=== PATIENT | male | born 1980 | race Caucasian/White ===

== ENCOUNTER 2019-07-09 20:20 | Emergency (ER) | payer BC, OTHER ==
[~2019-07-09] VITALS: Ht 165.1 cm; Wt 81.2 kg
[~2019-07-09 20:20] MED LIST: OMEP20CA4 PO
--- NOTE | 2019-07-09 20:30 | NUR ---
BIB W/ FOR C/O ABD PAIN, +N/V SINE 0900, pt aaox4, -sob, pt on monitor, vss, nad noted, pending md mariscal
[2019-07-09] MEDS ORDERED: ONDANSETRON HCL/PF 4 MG/2 ML VIAL ONE (20:50)
[2019-07-09] MEDS ORDERED: HYDROMORPHONE 1 MG/1 ML DISP.SYRIN ONE ×2 (20:51→21:50)
[2019-07-09 20:56] LABS: BASOPHILS % (AUTO) 0.4 % (0.0-2.0); HEMATOCRIT 46 % (39-51); HEMOGLOBIN 15.4 g/dL (13.5-17.5); LYMPHOCYTES # (AUTO) 0.8 /CMM (0.8-4.8); LYMPHOCYTES % (AUTO) 9.8 % (20.0-44.0); MEAN CORPUSCULAR HGB CONC 34 g/dl (31.0-36.0); MEAN CORPUSCULAR VOLUME 86 fL (80-96); MONOCYTES # (AUTO) 0.8 /CMM (0.1-1.30); MONOCYTES % (AUTO) 9.7 % (2.0-12.0); NEUTROPHILS # (AUTO) 6.2 /CMM (1.8-8.9); NEUTROPHILS % (AUTO) 79.1 % (43.0-81.0); PLATELET COUNT (AUTO) 238 /CMM (150-450); WHITE BLOOD COUNT (AUTO) 7.8 K/uL (4.3-11.0)
[2019-07-09] MEDS ORDERED: ONDANSETRON HCL/PF 4 MG/2 ML VIAL IVP ONE (21:00)
[2019-07-09] MEDS ORDERED: IV NS 0.9% 1,000 ML BAG IV ONE (21:00)
[2019-07-09] MEDS ORDERED: HYDROMORPHONE INJ 2 MG/ML DISP.SYRIN IV ONE ×2 (21:00→22:00)
[2019-07-09 21:18] LABS: BILIRUBIN,DIRECT 0.1 mg/dL (0.0-0.2); BILIRUBIN,TOTAL 0.4 mg/dL (0.2-1.0); CALCIUM, SERUM 9.1 mg/dL (8.5-10.1); POTASSIUM 3.7 mmol/L (3.5-5.1); TOTAL PROTEIN, SERUM 7.1 g/dL (6.4-8.2)
[2019-07-09 21:30] LABS: APPEARANCE,URINE Clear (CLEAR); BILIRUBIN,URINE SMALL (NEGATIVE); BLOOD, URINE Negative Ery/uL (NEGATIVE); COLOR,URINE Yellow (YELLOW); KETONES,URINE Trace (NEGATIVE); LEUKOCYTE ESTERASE ,URINE Negative (NEGATIVE); NITRITE, URINE Negative (NEGATIVE); PROTEIN,URINE Trace mg/dl (NEGATIVE); UGLUCOSE Negative (NEGATIVE)
[2019-07-09 21:42] LABS: BACTERIA,URINE None seen /HPF (None Seen); RBC,URINE NONE SEEN /HPF (0-2); WBC,URINE NONE SEEN /HPF (0-3)
[2019-07-09 21:43] LABS: HYALINE CASTS, URINE Few /LPF (None Seen); MUCUS,URINE Few /LPF (None Seen)
[2019-07-09] MEDS ORDERED: METOCLOPRAMIDE HCL 10 MG/2 ML VIAL ONE (21:50)
[2019-07-09] MEDS ORDERED: METOCLOPRAMIDE HCL 10 MG/2 ML VIAL IV ONE (22:00)
--- NOTE | 2019-07-09 22:38 | NUR ---
Patient discharged to home in stable condition. Written and verbal after care instructions given. Patient verbalizes understanding of instruction.IV removed. Catheter intact and site benign. Pressure and 4x4 applied to site. No bleeding noted.Pt ambulatory with a steady gait
[2019-07-09 22:39] VITALS: BP 140/86
== END 2019-07-09 22:39 | disposition home or self-care (01) ==
LOC: ER 20:23
DX: R10.84 Generalized abdominal pain (principal); R11.2 Nausea with vomiting, unspecified; I10 Essential (primary) hypertension; M54.30 Sciatica, unspecified side; K21.9 Gastro-esophageal reflux disease without esophagitis; G89.29 Other chronic pain; M54.9 Dorsalgia, unspecified; Z98.890 Other specified postprocedural states; Z79.899 Other long term (current) drug therapy
CPT/HCPCS: 36415; 80048; 80076; 81001; 83690; 85025; 87804 ×2; 96361; 96374; 96375; 99283; J1170 ×2; J2405; J2765; J7030; 81000-TC

== ENCOUNTER 2020-10-13 10:00 | Emergency (ER) | payer BC ==
[~2020-10-13] VITALS: Ht 165.1 cm; Wt 74.8 kg
[2020-10-13 10:29] LABS: BASOPHILS # (AUTO) 0.1 /CMM (0.0-0.2); BASOPHILS % (AUTO) 0.8 % (0.0-2.0); HEMATOCRIT 45 % (39-51); HEMOGLOBIN 15.1 g/dL (13.5-17.5); LYMPHOCYTES # (AUTO) 0.9 /CMM (0.8-4.8); LYMPHOCYTES % (AUTO) 13.3 % (20.0-44.0); MEAN CORPUSCULAR HGB CONC 34 g/dl (31.0-36.0); MEAN CORPUSCULAR VOLUME 87 fL (80-96); MONOCYTES # (AUTO) 0.5 /CMM (0.1-1.30); MONOCYTES % (AUTO) 7.3 % (2.0-12.0); NEUTROPHILS # (AUTO) 5.2 /CMM (1.8-8.9); NEUTROPHILS % (AUTO) 76.6 % (43.0-81.0); PLATELET COUNT (AUTO) 252 /CMM (150-450); RED BLOOD CELL COUNT(AUTO) 5.16 MIL/uL (4.5-6.0); WHITE BLOOD COUNT (AUTO) 6.8 K/uL (4.3-11.0)
[2020-10-13] MEDS ORDERED: ONDANSETRON HCL/PF 4 MG/2 ML VIAL IVP ONE (10:30)
[2020-10-13] MEDS ORDERED: IV NS 0.9% 1,000 ML BAG IV ONE (10:30)
[2020-10-13] MEDS ORDERED: HYDROMORPHONE INJ 2 MG/ML DISP.SYRIN IV ONE (10:30)
[2020-10-13 10:42] LABS: BILIRUBIN,DIRECT 0.1 mg/dL (0.0-0.2); BILIRUBIN,TOTAL 0.3 mg/dL (0.2-1.0); CALCIUM, SERUM 9.2 mg/dL (8.5-10.1); CREATININE 1.1 mg/dL (0.6-1.3); POTASSIUM 3.7 mmol/L (3.5-5.1); TOTAL PROTEIN, SERUM 7.4 g/dL (6.4-8.2)
[2020-10-13] MEDS ORDERED: ONDANSETRON HCL/PF 4 MG/2 ML VIAL ONE (10:44)
[2020-10-13] MEDS ORDERED: HYDROMORPHONE 1 MG/1 ML DISP.SYRIN ONE (10:44)
--- NOTE | 2020-10-13 10:52 | NUR ---
Patient came in to the er c/o abd pain, cramping x 4 days and diarrhea, +nausea, 10/10 pain scale. On room air, breathing evenly and unlabored. Connected tot he monitor and pulse ox. kept comfortable, will continue to monitor accordingly.
[2020-10-13 11:18] LABS: BILIRUBIN,URINE Negative (NEGATIVE); COLOR,URINE YELLOW (YELLOW); LEUKOCYTE ESTERASE ,URINE Negative (NEGATIVE); NITRITE, URINE Negative (NEGATIVE); PH,URINE 7.5 (5.0-8.0); PROTEIN,URINE Negative (NEGATIVE); UGLUCOSE Negative (NEGATIVE); UROBILINOGEN,URINE 0.2 EU/dL (0.2)
[2020-10-13 12:21] VITALS: BP 140/81
--- NOTE | 2020-10-13 12:21 | NUR ---
Patient discharged to home in stable condition. Written and verbal after care instructions given. Patient verbalizes understanding of instruction.IV removed. Catheter intact and site benign. Pressure and 4x4 applied to site. No bleeding noted.
== END 2020-10-13 12:21 | disposition home or self-care (01) ==
LOC: ER 10:05
DX: R10.84 Generalized abdominal pain (principal); R19.7 Diarrhea, unspecified; R11.0 Nausea; K21.9 Gastro-esophageal reflux disease without esophagitis; Z98.890 Other specified postprocedural states; Z79.899 Other long term (current) drug therapy
CPT/HCPCS: 36415; 74176; 80048; 80076; 81003; 83690; 85025; 96361; 96374; 96375; 99284; J1170; J2405; J7030

== ENCOUNTER 2023-10-21 12:02 | Emergency (ER) | payer BC ==
[~2023-10-21] VITALS: Ht 165.1 cm; Wt 77.6 kg
[2023-10-21] MEDS ORDERED: ONDANSETRON HCL/PF 4 MG/2 ML VIAL ONE (12:15)
[2023-10-21] MEDS ORDERED: MORPHINE SULFATE INJ 4 MG/ML DISP.SYRIN ONE (12:15)
[2023-10-21] MEDS ORDERED: ASPIRIN EC 325 MG TABLET.DR PO ONE (12:15)
[2023-10-21] MEDS ORDERED: NITROGLYCERIN 0.4 MG/TAB BOTTLE ONE (12:16)
[2023-10-21] MEDS: NITROGLYCERIN 0.4 MG/TAB BOTTLE SL ONE (12:16)
[2023-10-21] MEDS: MORPHINE SULFATE INJ 2 MG/ML DISP.SYRIN IV ONE ×2 (12:21→12:33)
[2023-10-21] MEDS: ASPIRIN 325 MG TABLET PO ONE (12:21)
[2023-10-21] MEDS: ONDANSETRON HCL/PF 4 MG/2 ML VIAL IVP ONE (12:21)
[2023-10-21 12:23] VITALS: BP 139/91; TEMP 98.7; O2SAT 100
[2023-10-21 12:26] LABS: BASOPHILS # (AUTO) 0.1 K/uL (0.0-0.2); BASOPHILS % (AUTO) 1.2 % (0.0-2.0); EOSINOPHILS # (AUTO) 0.1 K/uL (0.0-0.7); EOSINOPHILS % (AUTO) 1.1 % (0.0-6.0); HEMATOCRIT 45 % (39-51); HEMOGLOBIN 15.2 g/dL (13.5-17.5); LYMPHOCYTES # (AUTO) 2.4 K/uL (0.8-4.8); LYMPHOCYTES % (AUTO) 22.9 % (20.0-44.0); MEAN CORPUSCULAR HEMOGLOBIN 29 PG (26.0-33.0); MEAN CORPUSCULAR HGB CONC 34 g/dl (31.0-36.0); MEAN CORPUSCULAR VOLUME 84 fL (80-96); MONOCYTES # (AUTO) 0.8 K/uL (0.1-1.30); MONOCYTES % (AUTO) 7.3 % (2.0-12.0); NEUTROPHILS # (AUTO) 7.2 K/uL (1.8-8.9); NEUTROPHILS % (AUTO) 67.5 % (43.0-81.0); PLATELET COUNT (AUTO) 413 K/uL (150-450); RED BLOOD CELL COUNT(AUTO) 5.29 MIL/uL (4.5-6.0); RED CELL DISTRIBUTION WIDTH 13.3 % (11.5-15.0); WHITE BLOOD COUNT (AUTO) 10.7 K/uL (4.3-11.0)
[2023-10-21 12:28] LABS: CALCIUM, SERUM 9.5 mg/dL (8.5-10.1); CARBON DIOXIDE 22 mmol/L (21-32); CHLORIDE 102 mmol/L (98-107); CREATININE 1.4 mg/dL (0.6-1.3); GLUCOSE 130 mg/dL (74-106); POTASSIUM 3.3 mmol/L (3.5-5.1); SODIUM SERUM 139 mmol/L (136-145); UREA NITROGEN, BLOOD 18 mg/dL (7-18)
[2023-10-21] MEDS ORDERED: MORPHINE SULFATE INJ 2 MG/ML DISP.SYRIN ONE (12:32)
[2023-10-21 12:41] LABS: NT-PRO BNP 61 pg/mL (0-125)
== END 2023-10-21 12:38 | disposition short-term general hospital (02) ==
LOC: ER 12:04
DX: I21.3 ST elevation (STEMI) myocardial infarction of unspecified site (principal)
CPT/HCPCS: 99291; 96374; 96375; 93005; 85025; 80048; 36415; 84484; 83880; J2270 ×2; J2405

== ENCOUNTER 2023-11-26 22:07 | Emergency (ER) | payer BC ==
[~2023-11-26] VITALS: Ht 165.1 cm; Wt 78.0 kg
[2023-11-26 22:33] VITALS: TEMP 100.5
[2023-11-26] MEDS ORDERED: diphenhydrAMINE HCL 50 MG/ML VIAL ONE (23:09)
[2023-11-26] MEDS ORDERED: ACETAMINOPHEN 325 MG TABLET ONE (23:09)
[2023-11-26] MEDS ORDERED: METOCLOPRAMIDE HCL 10 MG/2 ML VIAL ONE (23:09)
[2023-11-26] MEDS: ACETAMINOPHEN 325 MG TABLET PO ONE (23:10)
[2023-11-26] MEDS: diphenhydrAMINE HCL 50 MG/ML VIAL IV ONE (23:31)
[2023-11-26] MEDS: METOCLOPRAMIDE HCL 10 MG/2 ML VIAL IV ONE (23:31)
[2023-11-26] MEDS: IV NS 0.9% 1,000 ML BAG IV ONE (23:31)
[2023-11-27] MEDS ORDERED: Magnesium 1GM/D5W 100ML PREMIX 100 ML IV ONE (01:06)
[2023-11-27] MEDS ORDERED: MORPHINE SULFATE INJ 4 MG/ML DISP.SYRIN ONE (01:06)
[2023-11-27] MEDS: Magnesium 1GM/D5W 100ML PREMIX 100 ML IV ONE (01:06)
[2023-11-27] MEDS: MORPHINE SULFATE INJ 2 MG/ML DISP.SYRIN IV ONE (01:07)
[2023-11-27] MEDS ORDERED: IOHEXOL-350 100 ML VIAL IV ONE (01:55)
[2023-11-27] MEDS ORDERED: CT SWABBABLE VALVE TRANS SET 1 EA INFUS.SET MC ONE (01:56)
[2023-11-27] MEDS ORDERED: LIDOCAINE 1% INJ 50 ML MDV IJ ONE (03:07)
[2023-11-27] MEDS: LIDOCAINE 1% INJ 50 ML MDV IJ ONE (03:11)
[2023-11-27 03:30] LABS: BASOPHILS % (AUTO) 0.4 % (0.0-2.0); EOSINOPHILS % (AUTO) 0.5 % (0.0-6.0); HEMATOCRIT 43 % (39-51); HEMOGLOBIN 14.5 g/dL (13.5-17.5); LYMPHOCYTES # (AUTO) 0.8 K/uL (0.8-4.8); LYMPHOCYTES % (AUTO) 7.8 % (20.0-44.0); MEAN CORPUSCULAR HEMOGLOBIN 29 PG (26.0-33.0); MEAN CORPUSCULAR HGB CONC 34 g/dl (31.0-36.0); MEAN CORPUSCULAR VOLUME 85 fL (80-96); MONOCYTES # (AUTO) 0.6 K/uL (0.1-1.30); MONOCYTES % (AUTO) 6.3 % (2.0-12.0); NEUTROPHILS # (AUTO) 8.2 K/uL (1.8-8.9); PLATELET COUNT (AUTO) 241 K/uL (150-450); RED BLOOD CELL COUNT(AUTO) 4.98 MIL/uL (4.5-6.0); RED CELL DISTRIBUTION WIDTH 13.4 % (11.5-15.0); WHITE BLOOD COUNT (AUTO) 9.6 K/uL (4.3-11.0)
[2023-11-27 04:10] LABS: CALCIUM, SERUM 9.2 mg/dL (8.5-10.1); CREATININE 1.3 mg/dL (0.6-1.3); POTASSIUM 4.1 mmol/L (3.5-5.1)
[2023-11-27] MEDS ORDERED: diphenhydrAMINE HCL 50 MG/ML VIAL ONE (05:09)
[2023-11-27] MEDS ORDERED: PROCHLORPERAZINE EDISYLATE 10 MG/2 ML VIAL ONE (05:10)
[2023-11-27] MEDS: PROCHLORPERAZINE EDISYLATE 10 MG/2 ML VIAL IVP ONE (05:17)
[2023-11-27] MEDS: IV NS 0.9% 1,000 ML BAG IV ONE (05:18)
[2023-11-27] MEDS: diphenhydrAMINE HCL 50 MG/ML VIAL IV ONE (05:18)
[2023-11-27 06:00] VITALS: BP 124/75; O2SAT 97
[2023-11-27] MEDS ORDERED: MORPHINE SULFATE INJ 2 MG/ML DISP.SYRIN IV PRN (06:30)
[2023-11-27] MEDS ORDERED: ACETAMINOPHEN 325 MG TABLET PO PRN (06:30)
[2023-11-27] MEDS ORDERED: ONDANSETRON HCL/PF 4 MG/2 ML VIAL IVP PRN (06:30)
[2023-11-27] MEDS ORDERED: IV NS 0.9% 1,000 ML IV PRN (06:30)
[2023-11-27] MEDS ORDERED: KETOROLAC TROMETHAMINE 15 MG/ML VIAL IV PRN (06:30)
[2023-11-27] MEDS ORDERED: MAG HYDROX/AL HYDROX/SIMETH 30 ML UDC PO PRN (06:30)
[2023-11-27] MEDS ORDERED: TICA90TA PO (07:44)
[2023-11-27] MEDS ORDERED: ASPI-1169 PO (07:44)
[2023-11-27] MEDS ORDERED: ROSU40TA PO (07:44)
[2023-11-27] MEDS ORDERED: METO25TA4 PO (07:44)
[2023-11-27] MEDS ORDERED: LOSA50TA3 PO (07:44)
[2023-11-27 09:16] LABS: ERYTHROCYTE SEDIMENTATION RATE 19 MM/HR (0-15)
== END 2023-11-27 07:55 | disposition left against medical advice (07) ==
LOC: ER 22:07 → UNDOADMIN 11-27 05:43 → TRANSITION 11-27 05:43 → ER 11-27 06:00 → TRANSITION 11-27 07:56 → MEDSG1 11-27 07:56
DX: G44.221 Chronic tension-type headache, intractable (principal); K21.9 Gastro-esophageal reflux disease without esophagitis; Z20.822 Contact with and (suspected) exposure to COVID-19
CPT/HCPCS: 99285; 70450; 96361; 96375 ×2; 87426; 87804 ×2; 70496; 85025; 80048; 85652; 36415; 96365; 96376; J1200 ×2; J2765; J7030 ×2; J0780; J3490; J2270; J3475; Q9967; J1885; J2405

== ENCOUNTER 2024-02-15 15:43 | Emergency (ER) | payer BC ==
[~2024-02-15] VITALS: Ht 289.6 cm; Wt 74.8 kg
[~2024-02-15 15:43] MED LIST changes: +ASPI-1169 PO; +LOSA50TA3 PO; +METO25TA4 PO; -OMEP20CA4 PO; +ROSU40TA PO; +TICA90TA PO
[2024-02-15 15:52] VITALS: BP 119/82; TEMP 99.4; O2SAT 98
[2024-02-15] MEDS ORDERED: AZIT250T13 PO (16:55)
[2024-02-15] MEDS: AZITHROMYCIN 250 MG TABLET PO ONE (17:00)
[2024-02-15] MEDS ORDERED: AZITHROMYCIN 250 MG TABLET ONE (17:01)
== END 2024-02-15 17:04 | disposition home or self-care (01) ==
LOC: ER 15:49
DX: J18.9 Pneumonia, unspecified organism (principal); K21.9 Gastro-esophageal reflux disease without esophagitis
CPT/HCPCS: 71045-TC